=== PATIENT | female | born 2000 | race Hispanic/Latino ===

== ENCOUNTER 2019-04-04 09:27 | Inpatient (IN) | payer MEDICAID, SELFPAY ==
[2019-04-04] MEDS ORDERED: NS / Oxytocin 40 units/1000ml 1,000 ML ONE (09:47)
[2019-04-04] MEDS ORDERED: hydrALAZINE 20 MG/ML VIAL SLOW IVP PRN (09:54)
[2019-04-04] MEDS ORDERED: Bisacodyl 10 MG SUPP PR PRN (09:54)
[2019-04-04] MEDS ORDERED: Benzocaine-Menthol 82.5 ML CAN TOP PRN (09:54)
[2019-04-04] MEDS ORDERED: Promethazine HCl 25 MG/ML VIAL IM PRN (09:54)
[2019-04-04] MEDS ORDERED: Zolpidem Tartrate 5 MG TAB PO PRN (09:54)
[2019-04-04] MEDS ORDERED: HYDROcodone/Acetaminophen 5/325 mg Tablet PO PRN ×2 (09:54)
[2019-04-04] MEDS ORDERED: diphenhydrAMINE 25 MG CAP PO PRN (09:54)
[2019-04-04] MEDS ORDERED: Preparation H Ointment 28 GM TUBE PR PRN (09:54)
[2019-04-04] MEDS ORDERED: Misoprostol 200 MCG TAB VAG PRN (09:54)
[2019-04-04] MEDS ORDERED: Ondansetron PF 4 MG/2 ML Vial IVP PRN (09:54)
[2019-04-04] MEDS ORDERED: Methylergonovine 0.2 MG/ML VIAL IM PRN (09:54)
[2019-04-04] MEDS ORDERED: Milk Of Magnesia 30 ML UDCUP PO PRN (09:54)
[2019-04-04] MEDS ORDERED: Lanolin Ointment 7 GM TUBE TOP PRN (09:54)
[2019-04-04] MEDS ORDERED: NS / Oxytocin 40 units/1000ml 1,000 ML IV SCH (10:00)
[2019-04-04 10:17] LABS: Hemoglobin 12.4 g/dL (12.0-16.0); Mean Corpuscular HGB CONC 35.9 g/dL (32.0-36.0); Mean Corpuscular Hemoglobin 30.6 pg (25.0-35.0); Mean Corpuscular Volume 85.1 fL (78.0-98.0); Mean Platelet Volume 11.1 fL (7.4-10.4); Platelet Count 132 thou/uL (130-400); RBC Distribution Width 12.5 % (11.5-14.5); Red Blood Cell (RBC) Count 4.05 mill/uL (4.00-5.20); White Blood Cell (WBC) Count 14.8 thou/uL (4.8-10.8)
[2019-04-04 10:59] LABS: Syphilis Antibody Nonreactive (Nonreactive); Syphilis Antibody Index 0.04 S/CO (<1.00 Non-Reactive)
[2019-04-04 11:00] LABS: HIV (1/2) Antibody/Antigen Non-Reactive (NonReactive); HIV 1/2 INDEX 0.11 S/CO (<1.00); Hep B Surf Ag Non-Reactive S/CO (NonReactive)
[2019-04-04 14:20] VITALS: BMI 24.1
[2019-04-04] MEDS: Ibuprofen 800 MG TAB PO SCH ×2 (14:41→21:29)
[2019-04-04] MEDS: Ferrous Sulfate 325 MG TAB PO SCH (15:39)
--- NOTE | 2019-04-04 18:21 | PDOC.FPROB ---
FMR OB H&P: HPI - History of Present Illness Chief Complaint: Low back pain, abdominal pain Indentification: 18 year old History of Present Illness: 18 year old at approximately at approximately 40.1 wks by LMP 06/27/2018 presents with a low back and abdominal pain since last night around 7 PM. Patient noted to be precipitously delivering infant in cephalic presentation. Patient states she did not know she was until 2 weeks ago when she did a urine test at the request of her massage therapist. Patient has had no care. Patient denies any drug or tobacco use. She did not have an ultrasound during this . Patient denies any significant PMH. Primary Care Physician: None FMR OB H&P: Current - Care : 1 Para: 0 Gestational age: 40.1 wks Due date: 04/03/2019 - OB Labs Blood type: O RH: positive Antibody Screen: negative HIV: unknown RPR: unknown HepBsAg: unknown Urine drug screen: not done Gonorrhea: unknown Chlamydia: unknown GBS: unknown FMR OB H&P: History - Past Medical History PMH: Denies - OB History OB History: G1; did not know she was until 2 weeks ago No PNC - Surgical History Sx History: Denies - Social History Social History: Denies tobacco, alcohol, or drug use FMR OB H&P: Medications - Current Allergies/Adverse Reactions: Allergies Allergy/AdvReac Type Severity Reaction Status Date / Time No Known Allergies Allergy Unverified 04/04/19 11:55 FMR OB H&P: ROS - Review of Systems General: denies: fever/chills ENT: denies: nasal congestion, rhinorrhea Cardiovascular: denies: chest pain, palpitation, edema Respiratory: denies: cough, congestion, shortness of breath Gastrointestinal: denies: abdominal pain, indigestion Genitourinary (Female): reports: vaginal pain, contractions, vaginal pressure. denies: dysuria Musculoskeletal: reports: pain (low back). denies: stiffness, decrease range of motion Neurologic: denies: numbness, syncope Integumentary: denies: itching, rash Hematologic/Lymphatic: denies: prolonged or excessive bleeding FMR OB H&P: Vital Signs - Maternal Vital signs: Vital Signs - First Documented Temp Pulse Resp BP Pulse Ox 98.7 F 68 16 122/77 98 04/04/19 12:15 04/04/19 12:15 04/04/19 12:15 04/04/19 12:15 04/04/19 12:15 FMR OB H&P: Physical Exam - Physical Exam General: NAD, awake, alert and oriented HEENT: EOMI, MMM, no scleral icterus, grossly normal vision, grossly normal hearing Heart: RRR, pulses present General: no respiratory distress, good air movement Abdomen: soft, gravid, non-tender Musculoskeletal: pulses present, FROM in all four extremities Neurological: no tremor, no focal deficit Skin: no rash, capillary refill <2 seconds Lymphatic: no unusual bruising or bleeding Psychiatric: intact recent and remote memory - Pelvic Exam Vulva: normal hair distribution Presentation: cephalic; bulging membrane, meconium stained FMR OB H&P: Results - Labs Lab results: Laboratory Results - last 24 hr 04/04/19 04/04/19 04/04/19 10:11 10:11 10:11 WBC 14.8 H RBC 4.05 Hgb 12.4 Hct 34.5 L MCV 85.1 MCH 30.6 MCHC 35.9 RDW 12.5 Plt Count 132 MPV 11.1 H Syphilis IgG/IgM Ab Nonreactive Hep Bs Antigen Non-Reactive HIV 1&2 Antigen & Ab Non-Reactive Blood Type Antibody Screen 04/04/19 04/04/19 10:11 10:40 WBC RBC Hgb Hct MCV MCH MCHC RDW Plt Count MPV Syphilis IgG/IgM Ab Hep Bs Antigen HIV 1&2 Antigen & Ab Blood Type O POSITIVE O POSITIVE Antibody Screen NEGATIVE FMR OB H&P: A/P - Problem List (1) Term Current Visit: Yes Status: Acute Code(s): Z34.90 - ENCNTR FOR SUPRVSN OF NORMAL , UNSP, UNSP TRIMESTER Disposition: 18 year old at approximately 40.1 wks by best estimated LMP of 06/27/2018 Precipitous vaginal delivery - Best EGA 40.1 wks by LMP 06/27/2018 - Bedside sono performed during delivery process which confirmed normal FHT's - SROM (what appeared to be forebag just prior to delivery around 9:00 AM); thick meconium, foul smelling - [facility] team and CRITICAL CARE REGISTERED NURSE present during delivery in ED (Dr. Savage and Dr. Guerrero) - Male infant apgars 8/9, cord blood sent for type and screen - 2nd degree perineal laceration s/p repair on L&D in usual fashion, hemostasis achieved No PNC - Routine OB labs plus UDS, rubella, hepBsAg - Tdap PP - Rh positive Dispo: Admit to L&D Discussion: Date/Time: 04/04/191816 This H&P was discussed with Dr. Savage who agrees with the above documentation and plan. Signature: Angela Miller, DO PGY-3 Addendum - Attending - Attending Attestation Date/Time: 04/05/19 [id number] I personally evaluated the patient and discussed the management with Dr. Miller. I agree with the History, Examination, Assessment and Plan documented above.
[2019-04-04 18:25] LABS: Amphetamine Not Detected (NotDetected); Barbiturates Screen Not Detected (NotDetected); Benzodiazepine Screen Not Detected (NotDetected); Cocaine Metabolite Screen Not Detected (NotDetected); Medtox Control Line Valid? VALID (VALID); Medtox Reader # READER 1; Methadone Not Detected (NotDetected); Methamphetamine Not Detected (NotDetected); Opiate Screen Not Detected (NotDetected); Oxycodone Screen Not Detected (NotDetected); Phencyclidine (PCP) Not Detected (NotDetected); THC/Cannabinoid Screen Not Detected (NotDetected); Tricyclic Screen Not Detected (NotDetected)
--- NOTE | 2019-04-04 18:35 | PDOC.OPDEL ---
OB Operative/Delivery Note Delivery Dr/Surgeon: Janette Miller Assist: May Pre-Delivery Diagnosis: active labor Procedure/Post Delivery Dx: spontaneous vaginal delivery Weeks gestation: 40 Anesthesia: local - Findings A Sex: male Weight: 3.025 kg - 1 min: 8 - 5 min: 9 - Additional Findings/Plan Placenta delivered: spontaneous Repaired Obstetrical Laceration: 2nd degree Estimated blood loss: 250 mL Compilations/Other Findings: Delivering Physician: Paul Attending: May Betts Procedure: Spontaneous Vaginal Delivery Anesthesia: Local for repair EBL: 250 mL Pre-op Diagnosis: 1. Term intrauterine in labor 2. No care Post-op Diagnosis: 1. Term intrauterine , delivered 2. No care Indications: A 18 y/o female presents in active labor at unknown gestational age. Best EGA 40.1 wks based on LMP 06/27/2018. Patient with precipitous, but controlled delivery in ED. Delivery Note: This is 18 yo F @ approximately 40 wks who precipitously delivered a viable M infant at 9:06 AM in the Emergency Department. Patient with no care. She only found out she was 2 weeks ago. AROM with thick meconium and foul smelling fluid just prior to delivery. Anterior shoulder and then remainder of the body delivered. No nuchal cord. The head was held down and mouth and nares were bulb suctioned. Cord clamped and cut and cord blood collected. Placenta delivered intact with a 3 vessel cord noted and sent for pathology. Fundal massage was performed and the fundus was firm. The cervix and vagina were inspected and a 2nd degree perineal laceration was noted and repaired with 3-0 Vicryl in the usual fashion with good approximation and hemostasis after a local anesthetic 1% lidocaine was injected at site. Patient was taken up to L&D prior to repair. went to nursery in good condition for routine care. Apgars were 8/9 at 1 & 5 minutes, respectively. Patient tolerated delivery well and went to after routine recovery/ care. Post delivery plan: routine recovery
[2019-04-04] MEDS: Docusate Calcium (SURFAK) 240 MG CAP PO SCH (21:29)
[2019-04-05] MEDS: Ibuprofen 800 MG TAB PO SCH ×3 (06:09→21:54)
--- NOTE | 2019-04-05 07:31 | PDOC.PP ---
Post Progress Note Post Day #: 1 Subjective: Patient doing well. No significant overnight events. Lochia minimal. PO intake tolerated: yes Flatus: yes Ambulation: yes Vital Signs (12 hours) Temp Pulse Resp BP Pulse Ox 04/05/19 04:24 97.9 F 77 18 110/69 04/05/19 00:18 98.6 F 88 16 120/72 04/04/19 19:49 98.9 F 61 20 121/76 96 Weight Weight 59.874 kg - Physical Examination General: NAD Cardiovascular: RRR Respiratory: non-labored breathing Abdominal: + bowel sounds, lochia (like period), no distention, appropriately TTP Fundus firm & at: at umbilicus Skin: no rash Neurological: no gross focal deficits Psychiatric: A&Ox3, normal affect Result Diagrams: 04/04/19 10:11 Additional Labs: Post Labs Blood Type O POSITIVE 04/04/19 10:40 Hep Bs Antigen Non-Reactive S/CO (NonReactive) 04/04/19 10:11 (1) Term Code(s): Z34.90 - ENCNTR FOR SUPRVSN OF NORMAL , UNSP, UNSP TRIMESTER Status: Acute (2) Term delivered Code(s): O80 - ENCOUNTER FOR FULL-TERM UNCOMPLICATED DELIVERY Status: Acute - Assessment/Plan Routine PP care - PP day #1 s/p precipitous - Rh positive, rubella immune - Lochia minimal - Meeting all PP milestones - UDS negative 2nd degree perineal laceration - s/p repair, hemostatic Dispo: Patient doing well. Plan for d/c home tomorrow.
[2019-04-05] MEDS ORDERED: Adacel (T-DAP) 0.5 ML SYRINGE IM ONE (09:00)
[2019-04-05] MEDS ORDERED: Varicella virus, LIVE 0.5 ML VIAL SC ONE (09:00)
[2019-04-05] MEDS ORDERED: Measles/Mumps/Rubella 10 MCG/0.5 ML VIAL SC ONE (09:00)
[2019-04-05] MEDS: Docusate Calcium (SURFAK) 240 MG CAP PO SCH ×2 (09:25→21:54)
[2019-04-05] MEDS: Ferrous Sulfate 325 MG TAB PO SCH ×2 (09:25→17:17)
[2019-04-05] MEDS: Prenatal Vitamin 1 TAB PO SCH (09:25)
[2019-04-05] MEDS ORDERED: FLU VACC QS2019-20(6MOS UP)/PF 60 MCG/0.5 ML SYRINGE IM ONE (14:45)
[2019-04-06] MEDS: Ibuprofen 800 MG TAB PO SCH (06:05)
--- NOTE | 2019-04-06 07:16 | PDOC.PP ---
Post Progress Note Post Day #: 2 Subjective: Patient doing well. No significant overnight events. Plans to follow up with [facility] for herself and infant. No complications in PP period. Lochia minimal. PO intake tolerated: yes Flatus: yes Ambulation: yes Vital Signs (12 hours) Temp Pulse Resp BP Pulse Ox 04/05/19 20:00 98.8 F 83 16 118/79 98 Weight Weight 59.874 kg - Physical Examination General: NAD Cardiovascular: RRR Respiratory: non-labored breathing Abdominal: + bowel sounds, lochia (like period), no distention, appropriately TTP Fundus firm & at: below umbilicus Skin: no rash Neurological: no gross focal deficits Psychiatric: A&Ox3, normal affect Result Diagrams: 04/04/19 10:11 Additional Labs: Post Labs Blood Type O POSITIVE 04/04/19 10:40 Hep Bs Antigen Non-Reactive S/CO (NonReactive) 04/04/19 10:11 Rubella IgG Antibody 1.85 index (Immune >0.99) 04/04/19 10:11 (1) Term Code(s): Z34.90 - ENCNTR FOR SUPRVSN OF NORMAL , UNSP, UNSP TRIMESTER Status: Acute (2) Term delivered Code(s): O80 - ENCOUNTER FOR FULL-TERM UNCOMPLICATED DELIVERY Status: Acute - Assessment/Plan Routine PP care - PP day #2 s/p precipitous - Rh positive, rubella immune - Lochia minimal - Meeting all PP milestones - UDS negative 2nd degree perineal laceration - s/p repair, hemostatic Dispo: Plan for d/c home.
[2019-04-06 08:17] VITALS: BP 118/83; TEMP 98.1
[2019-04-06] MEDS: Ferrous Sulfate 325 MG TAB PO SCH (09:15)
[2019-04-06] MEDS: Prenatal Vitamin 1 TAB PO SCH (09:15)
[2019-04-06] MEDS: Docusate Calcium (SURFAK) 240 MG CAP PO SCH (09:16)
== END 2019-04-06 11:50 | disposition home or self-care (01) | DRG 807 ==
LOC: EDSTATUS 09:27 → ERS 09:27 → L&D 09:31 → 3SW 12:14
PROVIDERS: ADMIT Obstetrics & Gynecology; ATTEND Obstetrics & Gynecology
PROC: 10907ZC Drainage of Amniotic Fluid, Therapeutic from Products of Conception, Via Natural or Artificial Opening (ICD-10-PCS; principal; 2019-04-04)
PROC: 10E0XZZ Delivery of Products of Conception, External Approach (ICD-10-PCS; 2019-04-04)
PROC: 0KQM0ZZ Repair Perineum Muscle, Open Approach (ICD-10-PCS; 2019-04-04)
DX: O62.3 Precipitate labor (principal); Z37.0 Single live birth; O77.0 Labor and delivery complicated by meconium in amniotic fluid; O70.1 Second degree perineal laceration during delivery; Z3A.40 40 weeks gestation of pregnancy
CPT/HCPCS: 36415; 80306; 85027; 86762; 86780; 86850; 86900; 86901; 87340; 87389; 88307; 99284